=== PATIENT | female | born 1955 | race Caucasian/White ===

== ENCOUNTER 2020-02-20 13:13 | Emergency (ER) | payer MEDICARE ==
[2020-02-20] MEDS ORDERED: Sodium Chloride 0.9% 10 ML Syringe FLUSH PRN (13:20)
[2020-02-20] MEDS ORDERED: Sodium Chloride 0.9% 2.5 ML Syringe FLUSH PRN (13:20)
--- NOTE | 2020-02-20 13:38 | EDM.PDOC ---
ED HPI GENERAL MEDICAL PROBLEM - General Chief Complaint: Respiratory Problem Stated Complaint: SOB Time Seen by Provider: 02/20/20 13:16 Source of Information: Reports: Patient, RN History Limitations: Reports: No Limitations - History of Present Illness INITIAL COMMENTS - FREE TEXT/NARRATIVE: History of present illness: [Patient is 64-year-old female with a history of pulmonary embolisms and IVC filter who presents from the clinic with shortness of breath. She was seeing a nurse practitioner today because she developed some right-sided posterior back pain last night, she initially thought it was muscle spasm or regular musculoskeletal back pain, then this morning the pain was a little bit worse and she thought maybe it was just pleuritic pain, but she was getting short of breath with exertion and thought she should come in and get checked out. She states that she does not take her Coumadin as prescribed. She apparently just takes it here and there, somewhat irregularly. She grew concerned because of the exertional shortness of breath and decided to come in and get checked out. Denies chest pain. Denies fever, chills, cough, known sick contacts, known exp osure. COVID-19. Has not taken any medications prior to arrival to treat her symptoms.] Review of systems: As per history of present illness and below otherwise all systems reviewed and negative. Past medical history: As per history of present illness and as reviewed below otherwise noncontributory. Surgical history: As per history of present illness and as reviewed below otherwise noncont ributory. Social history: No reported history of drug or alcohol abuse. Family history: As per history of present illness and as reviewed below otherwise noncontributory. Physical exam: General: Awake, alert, no acute distress, A&O X3. HEENT: Atraumatic, normocephalic, pupils reactive, negative for conjunctival pallor or scleral icterus, mucous membranes moist, throat clear, neck supple, nontender, trachea midline. Lungs: Clear to auscultation, breath sounds equal bilaterally, chest nontender. Heart: RRR, normal S1S2, no JVD. Abdomen: Soft, nondistended, nontender. Negative for masses or hepatosplenomegaly. Negative for costovertebral tenderness. Pelvis: Stable nontender. Genitourinary: Deferred. Rectal: Deferred. Extremities: Atraumatic, no edema, Neurovascular unremarkable. Neuro: Motor and sensory grossly intact throughout. Exam nonfocal. Diagnostics: [] Therapeutics: [] Impression: [] Plan: [] Definitive disposition and diagnosis as appropriate pending reevaluation and review of above. back pain Pain Score (Numeric/FACES): 9 - Related Data Allergies Allergy/AdvReac Type Severity Reaction Status Date / Time prochlorperazine Allergy Muscle Verified 02/20/20 13:20 [From Compazine] Aches sulfur dioxide Allergy Shortness Verified 02/20/20 13:20 of Breath sulfur Allergy Shortness Uncoded 02/20/20 13:20 of Breath Home Meds: Home Meds Aspirin [Adult Low Dose Aspirin EC] 81 mg PO DAILY 02/20/20 [History] RABEprazole Sodium [Aciphex] 0 mg PO BID 02/20/20 [History] Warfarin [Coumadin] 0 mg PO DAILY 02/20/20 [History] Warfarin [Coumadin] 2.5 mg PO DAILY #30 tab 02/20/20 [Rx] atenoloL [Atenolol] 25 mg PO DAILY 02/20/20 [History] oxyCODONE ER [OxyCONTIN] 5 mg PO QID 02/20/20 [History] Past Medical History Cardiovascular History: Reports: High Cholesterol, Hypertension Respiratory History: Reports: COPD Gastrointestinal History: Reports: None Genitourinary History: Reports: None - Infectious Disease History Infectious Disease History: Reports: Chicken Pox - Past Surgical History Cardiovascular Surgical History: Reports: Other (See Below) Other Cardiovascular Surgeries/Procedures: vena cava filter Respiratory Surgical History: Reports: None GI Surgical History: Reports: Small Bowel Male Surgical History: Reports: Other (See Below) Other Male Surgeries/Procedures: hysterectomy Social & Family History - Family History Family Medical History: Noncontributory - Tobacco Use Smoking Status *Q: Never Smoker Second Hand Smoke Exposure: No - Caffeine Use Caffeine Use: Reports: None - Recreational Drug Use Recreational Drug Use: No ED ROS GENERAL - Review of Systems Review Of Systems: Comprehensive ROS is negative, except as noted in HPI. ED EXAM, GENERAL - Physical Exam Exam: See Below (see h and p) EKG INTERPRETATION EKG Date: 02/20/20 Time: 13:15 Rhythm: NSR Rate (Beats/Min): 65 [place]: Normal P-Wave: Present QRS: Normal ST-T: Normal QT: Normal Course - Vital Signs Text/Narrative:: CTA of the chest is negative. Vital signs are stable. Symptoms appear to be more consistent with muscle spasm/musculoskeletal back pain. Patient was treated here in the ER with her regular dose of narcotic pain medicine orally along with IM Norflex. I agreed to refill her prescription for warfarin for home use. Her INR is subtherapeutic, in the meantime I gave her a dose of Lovenox subcutaneous here in the ED. She is agreeable with plan for discharge home and follow-up in the outpatient setting. Not hypoxic, not tachypneic, no respiratory distress, reassuring work-up here in the ED. Return precautions provided otherwise well-appearing and stable at discharge. Last Recorded V/S: Last Vital Signs Temp 35.8 C L 02/20/20 13:16 Pulse 67 02/20/20 14:28 Resp 23 H 02/20/20 14:28 BP 125/51 L 02/20/20 14:28 Pulse Ox 96 02/20/20 14:28 - Orders/Labs/Meds Orders: Active Orders 24 hr Category Date Time Status EKG 12 Lead [EKG Documentation Completion] [RC] STAT Care 02/20/20 13:21 Active Enoxaparin [Lovenox] Med 02/20/20 15:38 Once 40 mg SUBCUT ONETIME ONE Sodium Chloride 0.9% [Saline Flush] Med 02/20/20 13:20 Active 10 ml FLUSH ASDIRECTED PRN Sodium Chloride 0.9% [Saline Flush] Med 02/20/20 13:20 Active 2.5 ml FLUSH ASDIRECTED PRN Saline Lock Insert [OM.PC] Stat Oth 02/20/20 13:20 Ordered Medication Orders Sodium Chloride (Saline Flush) 10 ml FLUSH ASDIRECTED PRN PRN Reason: Keep Vein Open Sodium Chloride (Saline Flush) 2.5 ml FLUSH ASDIRECTED PRN PRN Reason: Keep Vein Open Labs: Laboratory Tests 02/20/20 02/20/20 02/20/20 Range/Units 13:15 13:15 13:15 WBC 7.86 (4.0-11.0) K/uL RBC 5.15 (4.30-5.90) M/uL Hgb 13.8 (12.0-16.0) g/dL Hct 44.0 (36.0-46.0) % MCV 85.4 (80.0-98.0) fL MCH 26.8 L (27.0-32.0) pg MCHC 31.4 (31.0-37.0) g/dL RDW Std Deviation 49.5 (28.0-62.0) fl RDW Coeff of Niko 16 H (11.0-15.0) % Plt Count 269 (150-400) K/uL MPV 10.70 (7.40-12.00) fL Neut % (Auto) 69.6 (48.0-80.0) % Lymph % (Auto) 18.4 (16.0-40.0) % Roosevelt % (Auto) 8.3 (0.0-15.0) % Eos % (Auto) 3.3 (0.0-7.0) % Baso % (Auto) 0.4 (0.0-1.5) % Neut # (Auto) 5.5 (1.4-5.7) K/uL Lymph # (Auto) 1.5 (0.6-2.4) K/uL Roosevelt # (Auto) 0.7 (0.0-0.8) K/uL Eos # (Auto) 0.3 (0.0-0.7) K/uL Baso # (Auto) 0.0 (0.0-0.1) K/uL Nucleated RBC % 0.0 /100WBC Nucleated RBCs # 0 K/uL INR 1.26 APTT 28.7 (18.6-31.3) SEC Sodium 140 (136-145) mmol/L Potassium 4.4 (3.5-5.1) mmol/L Chloride 105 (98-107) mmol/L Carbon Dioxide 27.7 (21.0-32.0) mmol/L BUN 12 (7.0-18.0) mg/dL Creatinine 1.0 (0.6-1.0) mg/dL Est Cr Clr Drug Dosing 41.36 mL/min Estimated GFR (MDRD) 56.0 ml/min Glucose 106 (74-106) mg/dL Calcium 9.3 (8.5-10.1) mg/dL Total Bilirubin 0.5 (0.2-1.0) mg/dL AST 23 (15-37) IU/L ALT 22 (14-63) IU/L Alkaline Phosphatase 103 (46-116) U/L Troponin I < 0.050 (0.000-0.056) ng/mL B-Natriuretic Peptide (<100) PG/ML Total Protein 7.5 (6.4-8.2) g/dL Albumin 3.7 (3.4-5.0) g/dL Globulin 3.8 (2.6-4.0) g/dL Albumin/Globulin Ratio 1.0 (0.9-1.6) 02/20/20 Range/Units 13:15 WBC (4.0-11.0) K/uL RBC (4.30-5.90) M/uL Hgb (12.0-16.0) g/dL Hct (36.0-46.0) % MCV (80.0-98.0) fL MCH (27.0-32.0) pg MCHC (31.0-37.0) g/dL RDW Std Deviation (28.0-62.0) fl RDW Coeff of Niko (11.0-15.0) % Plt Count (150-400) K/uL MPV (7.40-12.00) fL Neut % (Auto) (48.0-80.0) % Lymph % (Auto) (16.0-40.0) % [place] % (Auto) (0.0-15.0) % Eos % (Auto) (0.0-7.0) % Baso % (Auto) (0.0-1.5) % Neut # (Auto) (1.4-5.7) K/uL Lymph # (Auto) (0.6-2.4) K/uL Roosevelt # (Auto) (0.0-0.8) K/uL Eos # (Auto) (0.0-0.7) K/uL Baso # (Auto) (0.0-0.1) K/uL Nucleated RBC % /100WBC Nucleated RBCs # K/uL INR APTT (18.6-31.3) SEC Sodium (136-145) mmol/L Potassium (3.5-5.1) mmol/L Chloride (98-107) mmol/L Carbon Dioxide (21.0-32.0) mmol/L BUN (7.0-18.0) mg/dL Creatinine (0.6-1.0) mg/dL Est Cr Clr Drug Dosing mL/min Estimated GFR (MDRD) ml/min Glucose (74-106) mg/dL Calcium (8.5-10.1) mg/dL Total Bilirubin (0.2-1.0) mg/dL AST (15-37) IU/L ALT (14-63) IU/L Alkaline Phosphatase (46-116) U/L Troponin I (0.000-0.056) ng/mL B-Natriuretic Peptide 19 (<100) PG/ML Total Protein (6.4-8.2) g/dL Albumin (3.4-5.0) g/dL Globulin (2.6-4.0) g/dL Albumin/Globulin Ratio (0.9-1.6) Meds: Medications Generic Name Dose Route Start Last Admin Trade Name Freq PRN Reason Stop Dose Admin Sodium Chloride 10 ml 02/20/20 13:20 Saline Flush FLUSH ASDIRECTED PRN Keep Vein Open Sodium Chloride 2.5 ml 02/20/20 13:20 Saline Flush FLUSH ASDIRECTED PRN Keep Vein Open Discontinued Medications Generic Name Dose Route Start Last Admin Trade Name Freq PRN Reason Stop Dose Admin Enoxaparin Sodium 40 mg 02/20/20 15:38 Lovenox SUBCUT 02/20/20 15:39 ONETIME ONE Iopamidol 60 ml 02/20/20 14:41 02/20/20 14:41 Isovue Multipack-370 (76%) IVPUSH 02/20/20 14:42 60 ml ONETIME ONE Administration Orphenadrine Citrate 60 mg 02/20/20 15:37 Norflex IM 02/20/20 15:38 ONETIME ONE Oxycodone/Acetaminophen 1 tab 02/20/20 15:37 Percocet 325-5 Mg PO 02/20/20 15:38 ONETIME ONE Departure - Departure Time of Disposition: 15:40 Disposition: Home, Self-Care 01 Condition: Good Clinical Impression: Back muscle spasm, Dyspnea - Discharge Information Prescriptions: Warfarin [Coumadin] 2.5 mg PO DAILY #30 tab Instructions: Muscle Cramps and Spasms, [id number] Referrals: PCP,None [Ordering Only Provider] - Forms: ED Department Discharge Additional Instructions: Follow-up with primary care doctor. Take all medications as prescribed. Return to the ER with any new or worsening symptoms. The following information is given to patients seen in the emergency department who are being discharged to home. This information is to outline your options for follow-up care. We provide all patients seen in our emergency department with a follow-up referral. The need for follow-up, as well as the timing and circumstances, are variable depending upon the specifics of your emergency department visit. If you don't have a primary care physician on staff, we will provide you with a referral. We always advise you to contact your personal physician following an emergency department visit to inform them of the circumstance of the visit and for follow-up with them and/or the need for any referrals to a consulting specialist. The emergency department will also refer you to a specialist when appropriate. This referral assures that you have the opportunity for follow-up care with a specialist. All of these measure are taken in an effort to provide you with optimal care, which includes your follow-up. Under all circumstances we always encourage you to contact your private physician who remains a resource for coordinating your care. When calling for follow-up care, please make the office aware that this follow-up is from your recent emergency room visit. If for any reason you are refused follow-up, please contact the [facility] Emergency Department at and asked to speak to the emergency department charge nurse. Sepsis Event Note (ED) - Evaluation Sepsis Screening Result: No Definite Risk - Focused Exam Vital Signs: Vital Signs Temp Pulse Resp BP Pulse Ox 02/20/20 14:28 67 23 H 125/51 L 96 02/20/20 13:48 66 17 119/63 97 02/20/20 13:16 35.8 C L 76 18 142/59 H 95 - My Orders Last 24 Hours: My Active Orders 02/20/20 13:20 Sodium Chloride 0.9% [Saline Flush] 10 ml FLUSH ASDIRECTED PRN Sodium Chloride 0.9% [Saline Flush] 2.5 ml FLUSH ASDIRECTED PRN Saline Lock Insert [OM.PC] Stat 02/20/20 13:21 EKG 12 Lead [EKG Documentation Completion] [RC] STAT 02/20/20 15:38 Enoxaparin [Lovenox] 40 mg SUBCUT ONETIME ONE - Assessment/Plan Last 24 Hours: My Active Orders 02/20/20 13:20 Sodium Chloride 0.9% [Saline Flush] 10 ml FLUSH ASDIRECTED PRN Sodium Chloride 0.9% [Saline Flush] 2.5 ml FLUSH ASDIRECTED PRN Saline Lock Insert [OM.PC] Stat 02/20/20 13:21 EKG 12 Lead [EKG Documentation Completion] [RC] STAT 02/20/20 15:38 Enoxaparin [Lovenox] 40 mg SUBCUT ONETIME ONE
[2020-02-20 14:11] LABS: BLOOD UREA NITROGEN,BUN 12 mg/dL (7.0-18.0); CARBON DIOXIDE,CO2 27.7 mmol/L (21.0-32.0); CHLORIDE,CL 105 mmol/L (98-107); GLUCOSE RANDOM 106 mg/dL (74-106); POTASSIUM,K 4.4 mmol/L (3.5-5.1); SODIUM,NA 140 mmol/L (136-145)
[2020-02-20] MEDS ORDERED: Iopamidol 755 MG/ML 500 ML Multipack Bottle IVPUSH ONE (14:41)
--- NOTE | 2020-02-20 15:27 | CT ---
CT chest Technique: Multiple axial sections through the chest were obtained. Study has been performed as a pulmonary angiogram protocol. Intravenous contrast was utilized. Findings: Pulmonary arteries are well opacified. No filling defects are seen to indicate pulmonary embolism. Aorta shows no aneurysm. Mediastinum and hilar regions show no adenopathy. Mild coronary artery calcification is seen. No pericardial thickening is seen. Visualized upper abdominal structures show nothing acute. Lung window settings were reviewed. No acute parenchymal changes appreciated. Bone window settings were reviewed which shows no acute osseous findings. Impression: 1. No findings of pulmonary embolism. 2. Nothing acute is appreciated on CT study of the chest. Diagnostic code #2 This report was dictated in MDT
[2020-02-20] MEDS ORDERED: Acetaminophen/oxyCODONE 325-5 MG Tab PO ONE (15:37)
[2020-02-20] MEDS ORDERED: Enoxaparin 40 MG/0.4 ML Syringe SUBCUT ONE (15:38)
== END 2020-02-20 16:20 | disposition home or self-care (01) ==
LOC: MW.ED 13:13
DX: R06.02 Shortness of breath (principal); M62.830 Muscle spasm of back; J44.9 Chronic obstructive pulmonary disease, unspecified; I10 Essential (primary) hypertension; Z79.01 Long term (current) use of anticoagulants; Z88.8 Allergy status to other drugs, medicaments and biological substances; Z79.82 Long term (current) use of aspirin; Z79.899 Other long term (current) drug therapy; Z86.711 Personal history of pulmonary embolism; Z91.048 Other nonmedicinal substance allergy status
CPT/HCPCS: 36415; 71275; 80053; 83880; 84484; 85025; 85610; 85730; 93005; 96372; 99285; A9270; J1650; J2360; Q9967; 99283